=== PATIENT | female | born 1990 | race African-American/Black ===

== ENCOUNTER 2017-05-04 15:48 | Emergency (ER) | payer OTHER ==
[2017-05-04 16:03] VITALS: TEMP 97.8
--- NOTE | 2017-05-04 17:33 | ED ---
Skin/Abscess/FB HPI - General Chief complaint: Skin/Abscess/Foreign Body Stated complaint: Allergeric Reaction Time Seen by Provider: 05/04/17 16:05 Source: patient, RN notes reviewed, old records reviewed Mode of arrival: ambulatory Limitations: no limitations - History of Present Illness Initial comments: This patient is a 27 year old female with CC of herpes outbreak. She reports she has been diagnosed with herpes many years ago. She reports she had the outbreak start a few days ago. She reports htat she has been having more frequent outbreaks. She relates that it is painful to urinate. She also reports vaginal discharge and request HIV and full STD testing. She reports history of new sexual contacts. [place] the area recently, does not have PCP. - Related Data Previous Rx's Medication Instructions Recorded Acetaminophen-Codeine 300-30mg 1 tab PO Q4H PRN #12 tablet 05/04/17 [Tylenol #3] metroNIDAZOLE [Flagyl] 500 mg PO TID #21 tab 05/04/17 valACYclovir HCL [Valtrex] 1,000 mg PO Q12HR #20 tab 05/04/17 Allergies Allergy/AdvReac Type Severity Reaction Status Date / Time No Known Allergies Allergy Verified 05/04/17 16:18 Review of Systems ROS Statement: Those systems with pertinent positive or pertinent negative responses have been documented in the HPI. ROS Other: All systems not noted in ROS Statement are negative. Constitutional: Denies: fever, chills Eyes: Denies: eye pain ENT: Denies: ear pain Respiratory: Denies: cough, dyspnea, wheezes Cardiovascular: Denies: chest pain, dyspnea on exertion Endocrine: Denies: fatigue Gastrointestinal: Denies: constipation Genitourinary: Reports: dysuria, discharge. Denies: urgency, frequency, hematuria Musculoskeletal: Denies: back pain Skin: Reports: rash. Denies: lesions Neurological: Denies: weakness Psychiatric: Denies: anxiety Hematological/Lymphatic: Denies: easy bleeding Past Medical History Additional Past Medical History / Comment(s): herpes History of Any Multi-Drug Resistant Organisms: None Reported Past Surgical History: No Surgical Hx Reported Past Psychological History: No Psychological Hx Reported Smoking Status: Never smoker Past Alcohol Use History: Occasional Past Drug Use History: None Reported General Exam - General Exam Comments Initial Comments: This is a 27 year old female. No distress. Limitations: no limitations General appearance: alert, in no apparent distress Head exam: Present: atraumatic, normocephalic, normal inspection Eye exam: Present: normal appearance, PERRL, EOMI. Absent: scleral icterus, conjunctival injection, periorbital swelling ENT exam: Present: normal exam, mucous membranes moist Neck exam: Present: normal inspection. Absent: tenderness, meningismus, lymphadenopathy Respiratory exam: Present: normal lung sounds bilaterally. Absent: respiratory distress, wheezes, rales, rhonchi, stridor Cardiovascular Exam: Present: regular rate, normal rhythm, normal heart sounds. Absent: systolic murmur, diastolic murmur, rubs, gallop, clicks GI/Abdominal exam: Present: soft, normal bowel sounds. Absent: distended, tenderness, guarding, rebound, rigid External exam: Present: lesions (herpetic lesions over labia and scrotum. ). Absent: normal external exam Speculum exam: Present: vaginal discharge. Absent: normal speculum exam, cervical discharge, vaginal bleeding By manual exam: Present: normal by manual exam. Absent: cervical motion tenderness, adnexal tenderness Extremities exam: Present: normal inspection, full ROM, normal capillary refill. Absent: tenderness, pedal edema, joint swelling, calf tenderness Back exam: Present: normal inspection Course Vital Signs 05/04/17 05/04/17 05/04/17 16:00 17:57 18:50 Temperature 97.8 F 97.8 F Pulse Rate 97 75 Respiratory 17 16 16 Rate Blood Pressure 106/66 110/68 O2 Sat by Pulse 98 98 Oximetry Medical Decision Making - Medical Decision Making This is a 27 year old with history of herpes outbreak and vaginal discharge. Requests full STD testing. She does have herpetic lesion over labia, and purulent vaginal dsicharge, ordor constistent with BV. She will be treated with flagyl and valtrex, and pain medication. She has no cervival motion tenderness. Chlamydia Gonorrhea swab obtained. She request HIV testing, discussed this will be sent out and followed up with if positive. Patient agrees. Patient understands infroming sexual partners in regards to HSV and to follow up with PCP. Given referral for PCP in area. - Lab Data Lab Results 05/04/17 05/04/17 05/04/17 Range/Units 17:50 17:50 17:50 Urine Color Yellow Urine Appearance Clear (Clear) Urine pH 5.5 (5.0-8.0) Ur Specific [place] 1.022 (1.001-1.035) Urine Protein Trace H (Negative) Urine Glucose (UA) Negative (Negative) Urine Ketones Negative (Negative) Urine Blood Negative (Negative) Urine Nitrite Negative (Negative) Urine Bilirubin Negative (Negative) Urine Urobilinogen <2.0 (<2.0) mg/dL Ur Leukocyte Esterase Negative (Negative) Urine HCG, Qual Not Detected (Not Detectd) Treponema pallidum Ab (Non-Reactive) HIV-1 Antibody (Non-Reactive) HIV Ag/Ab Interpret (()) HIV p24 Antibody (Non-Reactive) HIV-2 Antibody (Non-Reactive) HIV P24 Antigen (Non-Reactive) Trichomonas Ag (Rapid) Negative (Negative) 05/04/17 05/04/17 Range/Units 17:50 17:50 Urine Color Urine Appearance (Clear) Urine pH (5.0-8.0) Ur Specific [place] (1.001-1.035) Urine Protein (Negative) Urine Glucose (UA) (Negative) Urine Ketones (Negative) Urine Blood (Negative) Urine Nitrite (Negative) Urine Bilirubin (Negative) Urine Urobilinogen (<2.0) mg/dL Ur Leukocyte Esterase (Negative) Urine HCG, Qual (Not Detectd) Treponema pallidum Ab Non-Reactive (Non-Reactive) HIV-1 Antibody Non-Reactive (Non-Reactive) HIV Ag/Ab Interpret (()) HIV p24 Antibody Non-Reactive (Non-Reactive) HIV-2 Antibody Non-Reactive (Non-Reactive) HIV P24 Antigen Non-Reactive (Non-Reactive) Trichomonas Ag (Rapid) (Negative) Disposition Clinical Impression: Herpes genitalis in women, Bacterial vaginosis Disposition: HOME SELF-CARE Condition: Good Instructions: Genital Herpes Simplex (ED) Additional Instructions: Follow-up with primary care provider. Return to emergency department if any alarming signs or symptoms occur. Prescriptions: Acetaminophen-Codeine 300-30mg [Tylenol #3] 1 tab PO Q4H PRN #12 tablet PRN Reason: Pain metroNIDAZOLE [Flagyl] 500 mg PO TID #21 tab valACYclovir HCL [Valtrex] 1,000 mg PO Q12HR #20 tab Referrals: None,Stated [Primary Care Provider] - 1-2 days Mayra aHrding MD [STAFF PHYSICIAN] - 1-2 days Time of Disposition: 18:34
[2017-05-04 17:59] VITALS: RESP 16
[2017-05-04 18:10] LABS: Appearance,Urine Clear (Clear); Bilirubin,Urine Negative (Negative); Blood,Urine Negative (Negative); Color,Urine Yellow; Glucose,Urine (UA) Negative (Negative); Ketones,Urine Negative (Negative); Leukocyte Esterase,Urine Negative (Negative); Nitrite,Urine Negative (Negative); PH, Urine 5.5 (5.0-8.0); Protein,Urine Trace (Negative); Specific Gravity,Urine 1.022 (1.001-1.035); Urobilinogen,Urine <2.0 mg/dL (<2.0)
[2017-05-04] MEDS ORDERED: valACYclovir 500 MG TAB PO STA (18:20)
[2017-05-04 18:55] VITALS: BP 110/68; PULSE 75
[2017-05-04 23:42] LABS: HIV AB P24 Non-Reactive (Non-Reactive); HIV P24 AG Non-Reactive (Non-Reactive)
[2017-05-06 13:47] LABS: Chlamydia trachomatis rRNA Not detected (Not detected); Neisseria gonorrhoeae rRNA Not detected (Not detected)
== END 2017-05-04 18:50 | disposition home or self-care (01) ==
LOC: EC 15:48
DX: A60.04 Herpesviral vulvovaginitis (principal)
CPT/HCPCS: 36415; 81003; 81025; 86780; 87070; 87086; 87205; 87390; 87491; 87591; 87808; 99284

== ENCOUNTER 2017-07-29 12:38 | Observation (INO) | payer OTHER ==
[2017-07-29 13:23] VITALS: RESP 18
[2017-07-29] MEDS ORDERED: ACETAMINOPHEN TAB 325 MG TAB PO STA (13:23)
--- NOTE | 2017-07-29 14:01 | XR ---
EXAMINATION TYPE: XR chest 2V DATE OF EXAM: 07/29/2017 COMPARISON: NONE HISTORY: Fever TECHNIQUE: Frontal and lateral views of the chest are obtained. FINDINGS: There is no focal air space opacity. Mild peribronchial cuffing may reflect bronchitis. No evidence for pneumothorax. No pleural effusion. The cardiac silhouette size is within normal limits. The osseous structures are grossly intact. IMPRESSION: 1. Correlate for bronchitis.
[2017-07-29 14:05] LABS: ALT 490 U/L (9-52); Albumin 4.6 g/dL (3.5-5.0); Alkaline Phosphatase 135 U/L (38-126); Anion Gap 10 mmol/L; Blood Urea Nitrogen 12 mg/dL (7-17); Calcium 9.9 mg/dL (8.4-10.2); Carbon Dioxide 28 mmol/L (22-30); Chloride 104 mmol/L (98-107); Glucose 93 mg/dL (74-99); Potassium 3.7 mmol/L (3.5-5.1); Sodium 142 mmol/L (137-145); Total Bilirubin 1.2 mg/dL (0.2-1.3); Total Protein 7.4 g/dL (6.3-8.2)
[2017-07-29 14:06] LABS: Basophils % (A) 0 %; Eosinophils % (A) 0 %; HCT 38.5 % (34.0-46.0); HGB 11.6 gm/dL (11.4-16.0); Hypochromasia Slight; Lymphocytes # (A) 0.2 k/uL (1.0-4.8); Lymphocytes % (A) 5 %; MCH 23.7 pg (25.0-35.0); MCHC 30.1 g/dL (31.0-37.0); MCV 78.7 fL (80.0-100.0); Mean Platelet Volume 8.2; Monocytes # (A) 0.1 k/uL (0-1.0); Monocytes % (A) 2 %; Neutrophils % (A) 92 %; Platelet Count 224 k/uL (150-450); RBC 4.89 m/uL (3.80-5.40); RDW 13.5 % (11.5-15.5); WBC 4.3 k/uL (3.8-10.6)
[2017-07-29 14:15] LABS: Appearance,Urine Cloudy (Clear); Bacteria,Urine Occasional /hpf; Bilirubin,Urine Negative (Negative); Blood,Urine Negative (Negative); Color,Urine Yellow; Glucose,Urine (UA) Negative (Negative); Ketones,Urine Negative (Negative); Leukocyte Esterase,Urine Moderate (Negative); Mucus,Urine Rare /hpf; Nitrite,Urine Negative (Negative); Protein,Urine Negative (Negative); RBC,Urine 1 /hpf (0-5); Specific Gravity,Urine 1.012 (1.001-1.035); Squamous Epithelial Cell,Urine 5 /hpf (0-4); Urobilinogen,Urine <2.0 mg/dL (<2.0); WBC,Urine 4 /hpf (0-5)
[2017-07-29 14:16] LABS: AST 889 U/L (14-36)
[2017-07-29] MEDS ORDERED: SODIUM CHLORIDE 0.9% 1,000 ML IV ONE (14:51)
--- NOTE | 2017-07-29 14:51 | ED ---
General Adult HPI - General Chief complaint: Fever Stated complaint: SOB,BACK PAIN Time Seen by Provider: 07/29/17 14:36 Source: patient, RN notes reviewed Mode of arrival: wheelchair Limitations: no limitations - History of Present Illness Initial comments: 27-year-old female presenting with chief complaint of fever, and body aches. Patient states that over the past 2 days she has developed generalized myalgias , she's also had some epigastric and right upper quadrant abdominal pain as well as 3 episodes of vomiting which occurred this morning. No diarrhea. Patient denies URI symptoms, denies cough, denies rhinorrhea or sore throat. She does complain of a frontal headache which is been present over the past 2 days as well. This was gradual in onset. Patient not currently on any medication. She denies dysuria or lower abdominal pain. - Related Data Home Medications Medication Instructions Recorded Confirmed No Known Home Medications [No 07/29/17 07/29/17 Known Home Medications] Allergies Allergy/AdvReac Type Severity Reaction Status Date / Time No Known Allergies Allergy Verified 07/29/17 14:45 Review of Systems ROS Statement: Those systems with pertinent positive or pertinent negative responses have been documented in the HPI. ROS Other: All systems not noted in ROS Statement are negative. Past Medical History Additional Past Medical History / Comment(s): herpes History of Any Multi-Drug Resistant Organisms: None Reported Past Surgical History: No Surgical Hx Reported Past Psychological History: No Psychological Hx Reported Smoking Status: Never smoker Past Alcohol Use History: None Reported Past Drug Use History: None Reported General Exam Limitations: no limitations General appearance: alert, in no apparent distress Head exam: Present: atraumatic, normocephalic Eye exam: Present: normal appearance, PERRL ENT exam: Present: mucous membranes dry Neck exam: Present: normal inspection. Absent: tenderness, meningismus Respiratory exam: Present: normal lung sounds bilaterally. Absent: respiratory distress, wheezes Cardiovascular Exam: Present: regular rate, normal rhythm GI/Abdominal exam: Present: soft, tenderness (Right upper quadrant and epigastric tenderness to palpation). Absent: distended, guarding, rebound Extremities exam: Present: normal inspection, full ROM, normal capillary refill. Absent: pedal edema, calf tenderness Back exam: Present: normal inspection, full ROM Neurological exam: Present: alert, oriented X3, CN II-XII intact. Absent: motor sensory deficit Psychiatric exam: Present: normal affect, normal mood Skin exam: Present: warm, dry, intact. Absent: cyanosis, diaphoretic Course Vital Signs 07/29/17 07/29/17 13:21 15:29 Temperature 102.3 F H 99.2 F Pulse Rate 96 71 Respiratory 18 18 Rate Blood Pressure 114/69 123/75 O2 Sat by Pulse 99 100 Oximetry Medical Decision Making - Medical Decision Making 27-year-old female presenting with fever, chills, right upper quadrant pain and vomiting. Laboratory studies reveal significant elevation in AST and ALT as well as alkaline phosphatase. Ultrasound is obtained, this shows cholelithiasis , positive Franco sign, normal gallbladder wall and normal common bile duct. Patient is given IV hydration and Rocephin emergency department. Case is discussed with Dr. Batista, general surgery, she will evaluate the patient, patient will be admitted to internal medicine with both general surgery and gastroenterology on consult. Hepatitis panel pending. - Lab Data Result diagrams: 07/29/17 13:40 07/29/17 13:40 Lab Results 07/29/17 07/29/17 07/29/17 Range/Units 13:40 13:40 13:40 WBC 4.3 (3.8-10.6) k/uL RBC 4.89 (3.80-5.40) m/uL Hgb 11.6 (11.4-16.0) gm/dL Hct 38.5 (34.0-46.0) % MCV 78.7 L (80.0-100.0) fL MCH 23.7 L (25.0-35.0) pg MCHC 30.1 L (31.0-37.0) g/dL RDW 13.5 (11.5-15.5) % Plt Count 224 (150-450) k/uL Neutrophils % 92 % Lymphocytes % 5 % Monocytes % 2 % Eosinophils % 0 % Basophils % 0 % Neutrophils # 4.0 (1.3-7.7) k/uL Lymphocytes # 0.2 L (1.0-4.8) k/uL Monocytes # 0.1 (0-1.0) k/uL Eosinophils # 0.0 (0-0.7) k/uL Basophils # 0.0 (0-0.2) k/uL Hypochromasia Slight Sodium 142 (137-145) mmol/L Potassium 3.7 (3.5-5.1) mmol/L Chloride 104 (98-107) mmol/L Carbon Dioxide 28 (22-30) mmol/L Anion Gap 10 mmol/L BUN 12 (7-17) mg/dL Creatinine 0.74 (0.52-1.04) mg/dL Est GFR (CKD-EPI)AfAm >90 (>60 ml/min/1.73 sqM) Est GFR (CKD-EPI)NonAf >90 (>60 ml/min/1.73 sqM) Glucose 93 (74-99) mg/dL Plasma Lactic Acid Alex 1.3 (0.7-2.0) mmol/L Calcium 9.9 (8.4-10.2) mg/dL Total Bilirubin 1.2 (0.2-1.3) mg/dL AST 889 H (14-36) U/L ALT 490 H (9-52) U/L Alkaline Phosphatase 135 H (38-126) U/L Total Protein 7.4 (6.3-8.2) g/dL Albumin 4.6 (3.5-5.0) g/dL Urine Color Urine Appearance (Clear) Urine pH (5.0-8.0) Ur Specific [place] (1.001-1.035) Urine Protein (Negative) Urine Glucose (UA) (Negative) Urine Ketones (Negative) Urine Blood (Negative) Urine Nitrite (Negative) Urine Bilirubin (Negative) Urine Urobilinogen (<2.0) mg/dL Ur Leukocyte Esterase (Negative) Urine RBC (0-5) /hpf Urine WBC (0-5) /hpf Ur Squamous Epith Cells (0-4) /hpf Urine Bacteria (None) /hpf Urine Mucus (None) /hpf Urine HCG, Qual (Not Detectd) Hepatitis A IgM Ab Influenza Type A RNA (Not Detectd) Influenza Type B (PCR) (Not Detectd) 07/29/17 07/29/17 07/29/17 Range/Units 13:40 13:40 15:03 WBC (3.8-10.6) k/uL RBC (3.80-5.40) m/uL Hgb (11.4-16.0) gm/dL Hct (34.0-46.0) % MCV (80.0-100.0) fL MCH (25.0-35.0) pg MCHC (31.0-37.0) g/dL RDW (11.5-15.5) % Plt Count (150-450) k/uL Neutrophils % % Lymphocytes % % Monocytes % % Eosinophils % % Basophils % % Neutrophils # (1.3-7.7) k/uL Lymphocytes # (1.0-4.8) k/uL Monocytes # (0-1.0) k/uL Eosinophils # (0-0.7) k/uL Basophils # (0-0.2) k/uL Hypochromasia Sodium (137-145) mmol/L Potassium (3.5-5.1) mmol/L Chloride (98-107) mmol/L Carbon Dioxide (22-30) mmol/L Anion Gap mmol/L BUN (7-17) mg/dL Creatinine (0.52-1.04) mg/dL Est GFR (CKD-EPI)AfAm (>60 ml/min/1.73 sqM) Est GFR (CKD-EPI)NonAf (>60 ml/min/1.73 sqM) Glucose (74-99) mg/dL Plasma Lactic Acid Alex (0.7-2.0) mmol/L Calcium (8.4-10.2) mg/dL Total Bilirubin (0.2-1.3) mg/dL AST (14-36) U/L ALT (9-52) U/L Alkaline Phosphatase (38-126) U/L Total Protein (6.3-8.2) g/dL Albumin (3.5-5.0) g/dL Urine Color Yellow Urine Appearance Cloudy H (Clear) Urine pH 5.0 (5.0-8.0) Ur Specific [place] 1.012 (1.001-1.035) Urine Protein Negative (Negative) Urine Glucose (UA) Negative (Negative) Urine Ketones Negative (Negative) Urine Blood Negative (Negative) Urine Nitrite Negative (Negative) Urine Bilirubin Negative (Negative) Urine Urobilinogen <2.0 (<2.0) mg/dL Ur Leukocyte Esterase Moderate H (Negative) Urine RBC 1 (0-5) /hpf Urine WBC 4 (0-5) /hpf Ur Squamous Epith Cells 5 H (0-4) /hpf Urine Bacteria Occasional H (None) /hpf Urine Mucus Rare H (None) /hpf Urine HCG, Qual Not Detected (Not Detectd) Hepatitis A IgM Ab NEGATIVE Influenza Type A RNA (Not Detectd) Influenza Type B (PCR) (Not Detectd) 07/29/17 Range/Units 15:30 WBC (3.8-10.6) k/uL RBC (3.80-5.40) m/uL Hgb (11.4-16.0) gm/dL Hct (34.0-46.0) % MCV (80.0-100.0) fL MCH (25.0-35.0) pg MCHC (31.0-37.0) g/dL RDW (11.5-15.5) % Plt Count (150-450) k/uL Neutrophils % % Lymphocytes % % Monocytes % % Eosinophils % % Basophils % % Neutrophils # (1.3-7.7) k/uL Lymphocytes # (1.0-4.8) k/uL Monocytes # (0-1.0) k/uL Eosinophils # (0-0.7) k/uL Basophils # (0-0.2) k/uL Hypochromasia Sodium (137-145) mmol/L Potassium (3.5-5.1) mmol/L Chloride (98-107) mmol/L Carbon Dioxide (22-30) mmol/L Anion Gap mmol/L BUN (7-17) mg/dL Creatinine (0.52-1.04) mg/dL Est GFR (CKD-EPI)AfAm (>60 ml/min/1.73 sqM) Est GFR (CKD-EPI)NonAf (>60 ml/min/1.73 sqM) Glucose (74-99) mg/dL Plasma Lactic Acid Alex (0.7-2.0) mmol/L Calcium (8.4-10.2) mg/dL Total Bilirubin (0.2-1.3) mg/dL AST (14-36) U/L ALT (9-52) U/L Alkaline Phosphatase (38-126) U/L Total Protein (6.3-8.2) g/dL Albumin (3.5-5.0) g/dL Urine Color Urine Appearance (Clear) Urine pH (5.0-8.0) Ur Specific [place] (1.001-1.035) Urine Protein (Negative) Urine Glucose (UA) (Negative) Urine Ketones (Negative) Urine Blood (Negative) Urine Nitrite (Negative) Urine Bilirubin (Negative) Urine Urobilinogen (<2.0) mg/dL Ur Leukocyte Esterase (Negative) Urine RBC (0-5) /hpf Urine WBC (0-5) /hpf Ur Squamous Epith Cells (0-4) /hpf Urine Bacteria (None) /hpf Urine Mucus (None) /hpf Urine HCG, Qual (Not Detectd) Hepatitis A IgM Ab Influenza Type A RNA Not Detected (Not Detectd) Influenza Type B (PCR) Not Detected (Not Detectd) Disposition Clinical Impression: Cholelithiasis, Transaminitis Disposition: ADMITTED IP TO THIS [facility] Condition: Stable Referrals: None,Stated [Primary Care Provider] - 1-2 days Decision to Admit Reason: Admit from EC Decision Date: 07/29/17 Decision Time: 16:29
--- NOTE | 2017-07-29 15:46 | US ---
EXAMINATION TYPE: US gallbladder DATE OF EXAM: 07/29/2017 COMPARISON: NONE CLINICAL HISTORY: Pain. Abdomen and back pain x 1 day, fever, chills, nausea EXAM MEASUREMENTS: Liver Length: 15.0 cm Gallbladder Wall: 0.2 cm CBD: 0.6 cm Right Kidney: 10.5 x 4.1 x 5.4 cm Pancreas: visualized portions wnl, tail limited by overlying midline bowel gas Liver: wnl Gallbladder: multiple echogenic shadowing foci seen with largest measuring 1.2cm, wall measures wnl Evidence for sonographic Franco's sign: yes CBD: measures in upper limits of normal at 0.6cm Right Kidney: wnl IMPRESSION: 1. Cholelithiasis.
[2017-07-29] MEDS ORDERED: cefTRIAXone IN SWFI 1,000 MG/10 ML SYRINGE IVP STA (15:47)
[2017-07-29 15:50] LABS: Hepatitis A AB IgM Index 0.02; Hepatitis A Antibody IgM NEGATIVE
[2017-07-29] MEDS ORDERED: NALOXONE 0.4 MG/ML 1 ML VIAL IV PRN (16:23)
[2017-07-29 17:44] VITALS: BP 118/71; PULSE 63; TEMP 98.7
[2017-07-30 01:11] LABS: Hepatitis B Core IgM Non-Reactive (Non-Reactive)
--- NOTE | 2017-08-26 15:08 | P.PN ---
Progress Note - Text Progress Note Date: 08/29/16 Patient left AMA before being seen
== END 2017-07-29 17:47 | disposition left against medical advice (07) ==
LOC: EC 12:38 → 5MS5E 16:23
PROVIDERS: ADMIT Family Medicine; ATTEND Family Medicine
DX: K80.20 Calculus of gallbladder without cholecystitis without obstruction (principal); R74.0 Nonspecific elevation of levels of transaminase and lactic acid dehydrogenase [LDH]; R51 Headache
CPT/HCPCS: 99285 ×2; 96374 ×2; 96361 ×2; 36415; 80053; 80074; 83605; 85025; 81001; 81025; 87040; 87502; 71046; 76705; G0378; J0696

== ENCOUNTER 2018-12-25 03:14 | Emergency (ER) | payer OTHER ==
[2018-12-25 03:26] VITALS: BP 113/77; PULSE 74; RESP 20; TEMP 98
[2018-12-25] MEDS ORDERED: AZITHROMYCIN 500 MG TAB PO STA (04:05)
--- NOTE | 2018-12-25 04:07 | ED ---
Female Urogenital HPI - General Chief complaint: Urogenital Stated complaint: Not feeling well Time Seen by Provider: 12/25/18 03:52 Source: patient Mode of arrival: ambulatory Limitations: no limitations - History of Present Illness Initial comments: Shawanda is a 28-year-old female presents the emergency department today for evaluation of vaginal discharge. Patient reports that she's noticed a malodorous vaginal discharge for 2-3 days duration. Patient reports that initially she thought she may have a yeast infection however it became malodorous which is atypical for her so she came to the ER for evaluation. Patient does state that she has been sexually active and is concern for exposure to sexual transmitted infections. Patient would like treatment for sexual transmitted infections. - Related Data Previous Rx's Medication Instructions Recorded Fluconazole [Diflucan] 150 mg PO Q3D #2 tab 12/25/18 Allergies Allergy/AdvReac Type Severity Reaction Status Date / Time No Known Allergies Allergy Verified 07/29/17 14:45 Review of Systems ROS Statement: Those systems with pertinent positive or pertinent negative responses have been documented in the HPI. ROS Other: All systems not noted in ROS Statement are negative. Past Medical History Additional Past Medical History / Comment(s): herpes History of Any Multi-Drug Resistant Organisms: None Reported Past Surgical History: No Surgical Hx Reported Past Psychological History: No Psychological Hx Reported Smoking Status: Never smoker Past Alcohol Use History: None Reported Past Drug Use History: None Reported General Exam - General Exam Comments Initial Comments: Physical Exam GENERAL: Patient is well-developed and well-nourished. Patient is nontoxic and well-hydr ated and is in no distress. HENT: Normocephalic, Atraumatic. EYES: PERRL, EOMI PULMONARY: Unlabored respiration CARDIOVASCULAR: RRR ABDOMEN: Nontender SKIN: Skin is clear with no lesions or rashes and otherwise unremarkable. : Normal external genitalia Copious white discharge, moderate discharge from cervix no cervical motion tenderness or strawberry cervix noted NEUROLOGIC: Patient is alert and oriented x3. Moving all extremities spontaneously MUSCULOSKELETAL: Normal extremities with adequate strength and full range of motion. No lower extremity swelling or edema. No calf tenderness. PSYCHIATRIC: Normal psychiatric evaluation. Limitations: no limitations Course Vital Signs 12/25/18 03:22 Temperature 98.0 F Pulse Rate 74 Respiratory 20 Rate Blood Pressure 113/77 O2 Sat by Pulse 100 Oximetry Medical Decision Making - Medical Decision Making The patient was seen and evaluated history is obtained from the patient This is a pleasant 28-year-old female with concern for exposure sexually transmitted infections physical exam is concerning for some discharge from the cervix as well as signs of yeast infection Patient will be treated for gonorrhea and chlamydia with Rocephin and azithromycin patient will be prescribed Diflucan, given that both Diflucan and a azithromycin and prolonged QT I did not recommend both be taken at the same time therefore dose of Diflucan was not given in the emergency department is where the gonorrhea and chlamydia testing will not result immediately she will be notified of any positive results. Trichomonas was negative. - Lab Data Lab Results 12/25/18 12/25/18 12/25/18 Range/Units 03:31 03:31 04:00 Urine Color Yellow Urine Appearance Clear (Clear) Urine pH 5.5 (5.0-8.0) Ur Specific [place] 1.031 (1.001-1.035) Urine Protein Negative (Negative) Urine Glucose (UA) Negative (Negative) Urine Ketones Negative (Negative) Urine Blood Negative (Negative) Urine Nitrite Negative (Negative) Urine Bilirubin Negative (Negative) Urine Urobilinogen 2.0 (<2.0) mg/dL Ur Leukocyte Esterase Small H (Negative) Urine RBC 2 (0-5) /hpf Urine WBC <1 (0-5) /hpf Ur Squamous Epith Cells 4 (0-4) /hpf Urine Bacteria Many H (None) /hpf Urine Mucus Occasional H (None) /hpf Urine HCG, Qual Not Detected (Not Detectd) Trichomonas Ag (Rapid) Negative (Negative) Disposition Clinical Impression: Vaginal discharge Disposition: HOME SELF-CARE Condition: Stable Instructions (If sedation given, give patient instructions): Safe Sex (ED) Prescriptions: Fluconazole [Diflucan] 150 mg PO Q3D #2 tab Is patient prescribed a controlled substance at d/c from ED?: No Referrals: None,Stated [Primary Care Provider] - 1-2 days
[2018-12-25] MEDS ORDERED: cefTRIAXone 1 GM VIAL IM ONE (04:15)
[2018-12-25 04:19] LABS: Appearance,Urine Clear (Clear); Bacteria,Urine Many /hpf; Bilirubin,Urine Negative (Negative); Blood,Urine Negative (Negative); Color,Urine Yellow; Glucose,Urine (UA) Negative (Negative); Ketones,Urine Negative (Negative); Leukocyte Esterase,Urine Small (Negative); Mucus,Urine Occasional /hpf; Nitrite,Urine Negative (Negative); PH, Urine 5.5 (5.0-8.0); Protein,Urine Negative (Negative); RBC,Urine 2 /hpf (0-5); Specific Gravity,Urine 1.031 (1.001-1.035); Squamous Epithelial Cell,Urine 4 /hpf (0-4); WBC,Urine <1 /hpf (0-5)
[2018-12-26 14:34] LABS: C. trachomatis,PCR Negative (Neg,Equiv); Chlamydia trachomatis Source Vagina
[2018-12-26 14:38] LABS: N. gonorrhoeae,PCR Negative (Neg,Equiv); Neisseria Source Vagina
== END 2018-12-25 04:40 | disposition home or self-care (01) ==
LOC: EC 03:14
DX: N89.8 Other specified noninflammatory disorders of vagina (principal)
CPT/HCPCS: 81001; 81025; 87808; 87491; 87591; 87070; 87205; 99283; 96372; J0696

== ENCOUNTER 2019-05-14 00:43 | Emergency (ER) | payer OTHER ==
[2019-05-14] MEDS ORDERED: SODIUM CHLORIDE 0.9% 1,000 ML IV STA (01:54)
[2019-05-14] MEDS ORDERED: diphenhydrAMINE 50 MG/ML 1 ML VIAL IVP STA (01:54)
[2019-05-14] MEDS ORDERED: ACETAMINOPHEN TAB 325 MG TAB PO STA (01:54)
[2019-05-14] MEDS ORDERED: METOCLOPRAMIDE 5 MG/ML 2 ML VIAL IVP STA (01:54)
--- NOTE | 2019-05-14 02:08 | CT ---
EXAMINATION TYPE: CT brain wo con DATE OF EXAM: 05/14/2019 COMPARISON: None HISTORY: headache CT DLP: 1099.40 mGycm Automated exposure control for dose reduction was used. Multiple axial sections were obtained of the brain without contrast. Ventricles and sulci appear normal. There is no mass effect nor midline shift. There is no sign of in tracranial hemorrhage. Calvarium is intact. There is large empty sella which is normal variant. IMPRESSION: Negative CT scan of the brain.
[2019-05-14 03:05] VITALS: BP 118/82; PULSE 63; RESP 17; TEMP 97.5
--- NOTE | 2019-05-14 03:35 | ED ---
General Adult HPI - General Chief complaint: Headache Stated complaint: Headache,Visual Changes Time Seen by Provider: 05/14/19 01:15 Source: patient, RN notes reviewed, old records reviewed Mode of arrival: ambulatory Limitations: no limitations - History of Present Illness Initial comments: 29-year-old female patient past history of migraine headaches and sees a chief complaint approximately 5 days waxing and waning migraine headache. Patient reports that is behind her left eye. Reports that she has had some photophobia. Does report that her vision is at baseline. Reports that headache began in the morning, had a somewhat acute onset, however was not thunderclap. Denies other red flag symptoms. Denies a loss of consciousness. Feels similar to migraine headache of the past. Denies any chance of being Systemic: Pt denies fatigue, fever/chills, rash. Pt denies weakness, night sweats, weight loss. Neuro: Pt denies visual disturbances, syncope or pre-syncope. HEENT: Pt denies ocular discharge or irritation, otalgia, rhinorrhea, pharyngitis or notable lymphadenopathy. Cardiopulmonary: Pt denies chest pain, SOB, heart palpitations, dyspnea on exertion. Abdominal/GI: Pt denies abdominal pain, n/v/d. : Pt denies dysuria, burning w/ urination, frequency/urgency. Denies new onset urinary or bowel incontinence. MSK: Pt denies myalgia, loss of strength or function in extremities. Neuro: Pt denies new onset weakness, paresthesias. - Related Data Previous Rx's Medication Instructions Recorded Fluconazole [Diflucan] 150 mg PO Q3D #2 tab 12/25/18 Allergies Allergy/AdvReac Type Severity Reaction Status Date / Time No Known Allergies Allergy Verified 07/29/17 14:45 Review of Systems ROS Statement: Those systems with pertinent positive or pertinent negative responses have been documented in the HPI. ROS Other: All systems not noted in ROS Statement are negative. Past Medical History Past Medical History: No Reported History Additional Past Medical History / Comment(s): herpes History of Any Multi-Drug Resistant Organisms: None Reported Past Surgical History: No Surgical Hx Reported Past Psychological History: No Psychological Hx Reported Smoking Status: Never smoker Past Alcohol Use History: Occasional Past Drug Use History: None Reported General Exam - General Exam Comments Initial Comments: Constitutional: NAD, AOX3, Pt has pleasant affect. HEENT: NC/AT, trachea midline, neck supple, no lymphadenopathy. Posterior pharynx non erythematous, without exudates. External ears appear normal, without discharge. Mucous membranes moist. Eyes PERRLA, EOM intact. There is no scleral icterus. No pallor noted. Cardiopulmonary: RRR, no murmurs, rubs or gallops, no JVD noted. Lungs CTAB in anterior and posterior guadarrama. No peripheral edema. Abdominal exam: Abdomen soft and non-distended. Abdomen non-tender to palpation in all 4 quadrants. Bowel sounds active in LLQ. No hepatosplenomegaly. No ecchymosis Neuro: CN II-XII intact. No nuchal rigidity. No raccon eyes, no chávez sign, no hemotympanum. No cervical spinal tenderness. Repeat neurologic exam within normal limits. MSK: No posterior calf tenderness bilaterally, homans sign negative bilaterally. Posterior tibialis and radial pulse +2 bilaterally. Sensation intact in upper and lower extremities. Full active ROM in upper and lower extremities, 5/5 stregnth. Limitations: no limitations Course Vital Signs 05/14/19 05/14/19 00:48 03:02 Temperature 98.3 F 97.5 F L Pulse Rate 66 63 Respiratory 15 17 Rate Blood Pressure 124/82 118/82 O2 Sat by Pulse 100 100 Oximetry Medical Decision Making - Medical Decision Making 29-year-old female patient presents to ED 48 but waxing and waning migraine-like headache. Patient vital signs are stable, afebrile. Physical exam displayed intact neurologic exam. Patient reports that she has never had any previous imaging of the brain. Requests CT. CT is negative. Patient had resolved with headache cocktail. Patient asymptomatic at this time. Repeat neurologic exam was within normal limits. Patient requesting discharge. Patient to follow up with primary care provider will return to ER physician worsens. Case discussed with Dr. Salguero. - Lab Data Lab Results 05/14/19 Range/Units 01:30 Urine HCG, Qual Not Detected (Not Detectd) Disposition Clinical Impression: Migraine headache Disposition: HOME SELF-CARE Condition: Stable Instructions (If sedation given, give patient instructions): Acute Headache (ED) Additional Instructions: Follow-up with primary care provider tomorrow. Return to ER if condition worsens. Is patient prescribed a controlled substance at d/c from ED?: No Referrals: None,Stated [Primary Care Provider] - 1-2 days [facility] [NON-STAFF] - 1-2 days
== END 2019-05-14 03:44 | disposition home or self-care (01) ==
LOC: EC 00:43
DX: G43.909 Migraine, unspecified, not intractable, without status migrainosus (principal)
CPT/HCPCS: 81025; 70450; 99284; 96374; 96375; 96361; J1200; J2765

== ENCOUNTER 2019-06-13 22:18 | Emergency (ER) | payer OTHER ==
[2019-06-13 22:23] VITALS: BP 107/75; PULSE 91; RESP 18; TEMP 97.9
[2019-06-13] MEDS ORDERED: AMOXIC-POT CLAV 875MG STARTER PACK 2 TAB BTL PO STA (22:39)
[2019-06-13] MEDS ORDERED: ACET/COD 300 MG/30 MG STARTER PACK 6 TAB BTL PO STA (22:39)
--- NOTE | 2019-06-13 22:41 | ED ---
ENT HPI - General Chief complaint: Dental/Oral Stated complaint: tooth pain Time Seen by Provider: 06/13/19 22:26 Source: patient Mode of arrival: ambulatory Limitations: no limitations - History of Present Illness Initial comments: Patient states that her right back molar is coming in and causing pain, patient unsure if this was normal and presented to the ER. Patient denies facial swelling, feverss, swelling below tongue or of neck. Denies difficulty swallowing or breathing, denies cracked dentition or masses of the gum. Patient has no other complaints and appears well on arrival, no distress. Afebrile. - Related Data Previous Rx's Medication Instructions Recorded Fluconazole [Diflucan] 150 mg PO Q3D #2 tab 12/25/18 Amoxicillin/Potassium Clav 1 tab PO Q12HR 7 Days #14 tab 06/14/19 [Augmentin 875-125 Tablet] Allergies Allergy/AdvReac Type Severity Reaction Status Date / Time No Known Allergies Allergy Verified 06/13/19 22:22 Review of Systems ROS Statement: Those systems with pertinent positive or pertinent negative responses have been documented in the HPI. ROS Other: All systems not noted in ROS Statement are negative. Past Medical History Past Medical History: No Reported History Additional Past Medical History / Comment(s): herpes History of Any Multi-Drug Resistant Organisms: None Reported Past Surgical History: No Surgical Hx Reported Past Psychological History: No Psychological Hx Reported Smoking Status: Never smoker Past Alcohol Use History: Occasional Past Drug Use History: None Reported General Exam - General Exam Comments Initial Comments: General: The patient is awake and alert, in no distress, and does not appear acutely ill. Eye: Pupils are equal, round and reactive to light, extra-ocular movements are intact. No nystagmus. There is normal conjunctiva bilaterally. No signs of icterus. Ears, nose, mouth and throat: There are moist mucous membranes and no oral lesions. No cracked dentition there is partially erupted tooth #32, no signs of adjacent toilet or redness. Slight pain to percussion. No swelling below the tongue or below the angle of the mandible no facial swelling noted Neck: The neck is supple, there is no tenderness or JVD. Cardiovascular: There is a regular rate and rhythm. No murmur, rub or gallop is appreciated. Respiratory: Lungs are clear to auscultation, respirations are non-labored, breath sounds are equal. No wheezes, stridor, rales, or rhonchi. Musculoskeletal: Normal ROM, no tenderness. Strength 5/5. Sensation intact. Pulses equal bilaterally 2+. Neurological: A&O x 3. CN II-XII intact grossly, There are no obvious motor or sensory deficits. Coordination appears grossly intact. Speech is normal. Skin: Skin is warm and dry and no rashes or lesions are noted. Psychiatric: Cooperative, appropriate mood & affect, normal judgment. Limitations: no limitations Course Vital Signs 06/13/19 06/13/19 22:22 22:57 Temperature 97.9 F 97.9 F Pulse Rate 91 91 Respiratory 18 18 Rate Blood Pressure 107/75 107/75 O2 Sat by Pulse 99 99 Oximetry Medical Decision Making - Medical Decision Making 29yo female presenting for dental pain. No abscess identified. Suspect pain is from partially erupted molar. Cannot however 100% r/o apical infection. Will treat with Augmentin and have patient f/u with oral surgery for consultation. Return parameters discussed. Patient denied . Patient discharged appearing well. Disposition Clinical Impression: Pain, dental Disposition: HOME SELF-CARE Condition: Good Instructions (If sedation given, give patient instructions): Dental Abscess (ED), Toothache (ED) Additional Instructions: Please use medication as discussed. Please follow-up with dentist and and or oral surgery for consultation of wisdom teeth removal. Please return to emergency room if the symptoms increase or worsen or for any other concerns. Is patient prescribed a controlled substance at d/c from ED?: No Referrals: None,Stated [Primary Care Provider] - 1-2 days John Kee DDS [STAFF PHYSICIAN] - 1-2 days Mor Montalvo DDS [STAFF PHYSICIAN] - 1-2 days Time of Disposition: 22:39
== END 2019-06-13 22:58 | disposition home or self-care (01) ==
LOC: EC 22:18
DX: K08.89 Other specified disorders of teeth and supporting structures (principal)
CPT/HCPCS: 99282

== ENCOUNTER 2019-08-08 00:09 | Emergency (ER) | payer OTHER ==
[2019-08-08 00:19] VITALS: TEMP 98.5
--- NOTE | 2019-08-08 00:43 | ED ---
General Adult HPI - General Chief complaint: Shortness of Breath Stated complaint: SOB Time Seen by Provider: 08/08/19 00:21 Source: patient Mode of arrival: ambulatory Limitations: no limitations - History of Present Illness Initial comments: Patient is 29-year-old female presenting to the emergency department with a chief complaint of shortness of breath. States symptoms and ongoing for the past 2 weeks. States she has developed some shortness of breath but no cough. States the shortness of breath is exacerbated whenever she is laying flat and alleviated in a standing position. States today she is also developed a nonproductive cough. States she took some Mucinex today and after several coughing fits she noticed some blood. Denies unilateral leg swelling. States she is not currently taking oral contraceptives. Denies any recent hospitalizations or prolonged periods of inactivity. Denies any night sweats fever or chills. Denies nausea vomiting diarrhea. Denies chest pain back pain or abdominal pain. Denies history of DVT or PE. - Related Data Previous Rx's Medication Instructions Recorded Fluconazole [Diflucan] 150 mg PO Q3D #2 tab 12/25/18 Amoxicillin/Potassium Clav 1 tab PO Q12HR 7 Days #14 tab 06/14/19 [Augmentin 875-125 Tablet] Albuterol Inhaler (Bulk) [Ventolin 1 - 2 puff INHALATION RT-Q6H PRN 08/08/19 Hfa Inhaler (Bulk)] #1 inhaler Allergies Allergy/AdvReac Type Severity Reaction Status Date / Time No Known Allergies Allergy Verified 08/08/19 00:19 Review of Systems ROS Statement: Those systems with pertinent positive or pertinent negative responses have been documented in the HPI. ROS Other: All systems not noted in ROS Statement are negative. Past Medical History Past Medical History: No Reported History Additional Past Medical History / Comment(s): herpes, gall stones History of Any Multi-Drug Resistant Organisms: None Reported Past Surgical History: No Surgical Hx Reported Past Psychological History: No Psychological Hx Reported Smoking Status: Never smoker Past Alcohol Use History: Occasional Past Drug Use History: None Reported General Exam Limitations: no limitations General appearance: alert, in no apparent distress Head exam: Present: atraumatic, normocephalic, normal inspection Eye exam: Present: normal appearance, PERRL, EOMI Pupils: Present: normal accommodation ENT exam: Present: normal exam, normal oropharynx, mucous membranes moist, TM's normal bilaterally, normal external ear exam Neck exam: Present: normal inspection, full ROM. Absent: lymphadenopathy Respiratory exam: Present: normal lung sounds bilaterally. Absent: chest wall tenderness Cardiovascular Exam: Present: regular rate, normal rhythm, normal heart sounds Extremities exam: Present: normal inspection, full ROM Back exam: Present: normal inspection, full ROM Neurological exam: Present: alert, oriented X3 Psychiatric exam: Present: normal affect, normal mood Skin exam: Present: warm, dry, intact, normal color Course Vital Signs 08/08/19 08/08/19 00:15 01:48 Temperature 98.5 F Pulse Rate 79 63 Respiratory 16 18 Rate Blood Pressure 109/75 122/84 O2 Sat by Pulse 99 99 Oximetry Medical Decision Making - Medical Decision Making Patient is a 29-year-old female presenting to the emergency department with chief complaint shortness of breath. Symptoms ongoing for the past 2 weeks. Increasing severity. On physical examination patient is not in any respiratory distress. Lungs are clear bilaterally. Vitals are stable. Chest x-ray is unr emarkable. Patient is perc positive due to hemoptysis. D-dimer is negative. No chest pain, fevers, back pain or abdominal pain. Patient will be discharged with an albuterol inhaler. Return parameters were thoroughly discussed with patient was understanding and agreeable. Case discussed with physician. - Lab Data Lab Results 08/08/19 Range/Units 00:55 D-Dimer 0.18 (<0.60) mg/L FEU Disposition Clinical Impression: Cough, Shortness of breath Disposition: HOME SELF-CARE Condition: Stable Instructions (If sedation given, give patient instructions): Asthma (ED) Additional Instructions: Follow-up with primary care. Return to emergency department if symptoms worsen. Prescriptions: Albuterol Inhaler (Bulk) [Ventolin Hfa Inhaler (Bulk)] 1 - 2 puff INHALATION RT-Q6H PRN #1 inhaler PRN Reason: Shortness Of Breath Is patient prescribed a controlled substance at d/c from ED?: No Referrals: None,Stated [Primary Care Provider] - 1-2 days Time of Disposition: 01:34
--- NOTE | 2019-08-08 00:54 | XR ---
EXAMINATION TYPE: XR chest 2V DATE OF EXAM: 08/08/2019 COMPARISON: 07/29/2017 HISTORY: Short of breath TECHNIQUE: FINDINGS: Heart and mediastinum are normal. Lungs are clear. Diaphragm is normal. Bony thorax appears normal. IMPRESSION: Normal chest. No change.
[2019-08-08 01:49] VITALS: BP 122/84; PULSE 63; RESP 18
== END 2019-08-08 01:45 | disposition home or self-care (01) ==
LOC: EC 00:09
DX: R06.02 Shortness of breath (principal); R05 Cough
CPT/HCPCS: 36415; 71046; 85379; 99284

== ENCOUNTER 2019-08-10 05:09 | Emergency (ER) | payer OTHER ==
[2019-08-10] MEDS ORDERED: LORazepam 2 MG/ML INJ IV STA (05:43)
[2019-08-10 06:27] LABS: Basophils % (A) 1 %; Eosinophils # (A) 0.1 k/uL (0-0.7); Eosinophils % (A) 2 %; HCT 38.1 % (34.0-46.0); HGB 11.7 gm/dL (11.4-16.0); Lymphocytes # (A) 1.9 k/uL (1.0-4.8); Lymphocytes % (A) 38 %; MCH 24.4 pg (25.0-35.0); MCHC 30.8 g/dL (31.0-37.0); MCV 79.3 fL (80.0-100.0); Monocytes # (A) 0.2 k/uL (0-1.0); Monocytes % (A) 4 %; Neutrophils # (A) 2.6 k/uL (1.3-7.7); Neutrophils % (A) 53 %; Platelet Count 264 k/uL (150-450); RDW 13.4 % (11.5-15.5); WBC 4.9 k/uL (3.8-10.6)
--- NOTE | 2019-08-10 06:32 | ED ---
SOB HPI - General Chief Complaint: Shortness of Breath Stated Complaint: SOB Time Seen by Provider: 08/10/19 05:26 Source: patient Mode of arrival: ambulatory - History of Present Illness Initial Comments: This patient is a 29-year-old woman who presents to be evaluated for shortness of breath. She states the symptoms have been going on for between 1 and 2 weeks. She states that she is not able to take a full breath in. She states that it feels like when she attempts to do this something catches in her chest. Patient denies any chest pain. No fever or chills. No cough. She has not had any change in urination or bowel movements. No leg pain or swelling. MD Complaint: shortness of breath Onset/Timin -: week(s) Severity scale (1-10): 0 Consistency: constant Improves With: upright position Worsens With: lying flat Treatments Prior to Arrival: none - Related Data Previous Rx's Medication Instructions Recorded Fluconazole [Diflucan] 150 mg PO Q3D #2 tab 12/25/18 Amoxicillin/Potassium Clav 1 tab PO Q12HR 7 Days #14 tab 06/14/19 [Augmentin 875-125 Tablet] Albuterol Inhaler (Bulk) [Ventolin 1 - 2 puff INHALATION RT-Q6H PRN 08/08/19 Hfa Inhaler (Bulk)] #1 inhaler Melatonin 2.5 mg PO HS PRN #20 tab.chew 08/10/19 Allergies Allergy/AdvReac Type Severity Reaction Status Date / Time No Known Allergies Allergy Verified 08/10/19 05:18 Review of Systems ROS Statement: Those systems with pertinent positive or pertinent negative responses have been documented in the HPI. ROS Other: All systems not noted in ROS Statement are negative. Constitutional: Denies: fever, chills, weakness Respiratory: Reports: dyspnea. Denies: cough, wheezes, hemoptysis Cardiovascular: Reports: orthopnea. Denies: chest pain, palpitations, dyspnea on exertion, edema, syncope Gastrointestinal: Denies: abdominal pain, melena, hematochezia Genitourinary: Denies: dysuria, hematuria Musculoskeletal: Denies: back pain Skin: Denies: rash Neurological: Denies: headache, weakness, numbness Past Medical History Past Medical History: No Reported History, Asthma Additional Past Medical History / Comment(s): herpes, gall stones History of Any Multi-Drug Resistant Organisms: None Reported Past Surgical History: No Surgical Hx Reported Past Psychological History: No Psychological Hx Reported Smoking Status: Never smoker Past Alcohol Use History: Occasional Past Drug Use History: None Reported General Exam General appearance: alert, in no apparent distress, anxious Head exam: Present: atraumatic, normocephalic Eye exam: Present: normal appearance ENT exam: Present: normal oropharynx Respiratory exam: Present: normal lung sounds bilaterally. Absent: respiratory distress, wheezes, rales, rhonchi, stridor, accessory muscle use, decreased breath sounds Cardiovascular Exam: Present: regular rate, normal rhythm, normal heart sounds. Absent: systolic murmur, diastolic murmur, rubs, gallop GI/Abdominal exam: Present: soft. Absent: distended, tenderness, guarding, rebound, rigid, mass Extremities exam: Present: normal inspection, normal capillary refill. Absent: pedal edema, calf tenderness Back exam: Present: normal inspection. Absent: CVA tenderness (R), CVA tenderness (L) Neurological exam: Present: alert Skin exam: Present: warm, dry, intact, normal color. Absent: rash Course Vital Signs 08/10/19 08/10/19 05:13 06:34 Temperature 98.8 F 98.3 F Pulse Rate 73 72 Respiratory 20 20 Rate Blood Pressure 130/81 135/46 O2 Sat by Pulse 98 100 Oximetry Medical Decision Making - Medical Decision Making Further history reveals that the patient states she is usually fine throughout the day and then has feeling shortness of breath mainly at night when she is trying to sleep. She does admit to having a lot of stress in dealing with what is going on currently in relation to the covert epidemic. In light of this will try a course of melatonin for sleep and have patient follow-up to see if this improves things. - Lab Data Result diagrams: 08/10/19 06:18 08/10/19 06:18 Lab Results 08/10/19 08/10/19 08/10/19 Range/Units 06:18 06:18 06:18 WBC 4.9 (3.8-10.6) k/uL RBC 4.80 (3.80-5.40) m/uL Hgb 11.7 (11.4-16.0) gm/dL Hct 38.1 (34.0-46.0) % MCV 79.3 L (80.0-100.0) fL MCH 24.4 L (25.0-35.0) pg MCHC 30.8 L (31.0-37.0) g/dL RDW 13.4 (11.5-15.5) % Plt Count 264 (150-450) k/uL Neutrophils % 53 % Lymphocytes % 38 % Monocytes % 4 % Eosinophils % 2 % Basophils % 1 % Neutrophils # 2.6 (1.3-7.7) k/uL Lymphocytes # 1.9 (1.0-4.8) k/uL Monocytes # 0.2 (0-1.0) k/uL Eosinophils # 0.1 (0-0.7) k/uL Basophils # 0.0 (0-0.2) k/uL PT 11.0 (9.0-12.0) sec INR 1.1 (<1.2) APTT 28.1 (22.0-30.0) sec D-Dimer <0.17 (<0.60) mg/L FEU Sodium 137 (137-145) mmol/L Potassium 3.6 (3.5-5.1) mmol/L Chloride 102 (98-107) mmol/L Carbon Dioxide 27 (22-30) mmol/L Anion Gap 8 mmol/L BUN 9 (7-17) mg/dL Creatinine 0.73 (0.52-1.04) mg/dL Est GFR (CKD-EPI)AfAm >90 (>60 ml/min/1.73 sqM) Est GFR (CKD-EPI)NonAf >90 (>60 ml/min/1.73 sqM) Glucose 99 (74-99) mg/dL Calcium 10.2 (8.4-10.2) mg/dL Total Bilirubin 0.6 (0.2-1.3) mg/dL AST 24 (14-36) U/L ALT 22 (4-34) U/L Alkaline Phosphatase 66 (38-126) U/L Troponin I (0.000-0.034) ng/mL NT-Pro-B Natriuret Pep pg/mL Total Protein 7.6 (6.3-8.2) g/dL Albumin 4.7 (3.5-5.0) g/dL 08/10/19 08/10/19 Range/Units 06:18 06:18 WBC (3.8-10.6) k/uL RBC (3.80-5.40) m/uL Hgb (11.4-16.0) gm/dL Hct (34.0-46.0) % MCV (80.0-100.0) fL MCH (25.0-35.0) pg MCHC (31.0-37.0) g/dL RDW (11.5-15.5) % Plt Count (150-450) k/uL Neutrophils % % Lymphocytes % % Monocytes % % Eosinophils % % Basophils % % Neutrophils # (1.3-7.7) k/uL Lymphocytes # (1.0-4.8) k/uL Monocytes # (0-1.0) k/uL Eosinophils # (0-0.7) k/uL Basophils # (0-0.2) k/uL PT (9.0-12.0) sec INR (<1.2) APTT (22.0-30.0) sec D-Dimer (<0.60) mg/L FEU Sodium (137-145) mmol/L Potassium (3.5-5.1) mmol/L Chloride (98-107) mmol/L Carbon Dioxide (22-30) mmol/L Anion Gap mmol/L BUN (7-17) mg/dL Creatinine (0.52-1.04) mg/dL Est GFR (CKD-EPI)AfAm (>60 ml/min/1.73 sqM) Est GFR (CKD-EPI)NonAf (>60 ml/min/1.73 sqM) Glucose (74-99) mg/dL Calcium (8.4-10.2) mg/dL Total Bilirubin (0.2-1.3) mg/dL AST (14-36) U/L ALT (4-34) U/L Alkaline Phosphatase (38-126) U/L Troponin I <0.012 (0.000-0.034) ng/mL NT-Pro-B Natriuret Pep 37 pg/mL Total Protein (6.3-8.2) g/dL Albumin (3.5-5.0) g/dL - EKG Data -: EKG Interpreted by Hi EKG shows normal: sinus rhythm, axis (Normal), intervals (Normal), QRS complexes (Normal), ST-T waves (Normal) Rate: normal (Rate 66 bpm) Interpretation: normal EKG Disposition Clinical Impression: Anxiety Disposition: HOME SELF-CARE Condition: Good Instructions (If sedation given, give patient instructions): Dyspnea (ED) Prescriptions: Melatonin 2.5 mg PO HS PRN #20 tab.chew PRN Reason: Insomnia Is patient prescribed a controlled substance at d/c from ED?: No Referrals: None,Stated [Primary Care Provider] - 1-2 days
[2019-08-10 06:35] VITALS: TEMP 98.3
[2019-08-10 06:38] LABS: ALT 22 U/L (4-34); AST 24 U/L (14-36); African American GFR (CKD) >90 (>60 ml/min/1.73 sqM); Albumin 4.7 g/dL (3.5-5.0); Alkaline Phosphatase 66 U/L (38-126); Anion Gap 8 mmol/L; Blood Urea Nitrogen 9 mg/dL (7-17); Calcium 10.2 mg/dL (8.4-10.2); Carbon Dioxide 27 mmol/L (22-30); Chloride 102 mmol/L (98-107); Glucose 99 mg/dL (74-99); Non-African American GFR(CKD) >90 (>60 ml/min/1.73 sqM); Potassium 3.6 mmol/L (3.5-5.1); Sodium 137 mmol/L (137-145); Total Bilirubin 0.6 mg/dL (0.2-1.3); Total Protein 7.6 g/dL (6.3-8.2)
[2019-08-10 06:40] LABS: D-Dimer <0.17 mg/L FEU (<0.60); INR 1.1 (<1.2); Partial Thromboplastin Time 28.1 sec (22.0-30.0)
--- NOTE | 2019-08-10 06:58 | XR ---
EXAMINATION TYPE: XR chest 2V DATE OF EXAM: 08/10/2019 COMPARISON: 08/08/2019 HISTORY: Difficulty breathing. Short of breath TECHNIQUE: FINDINGS: Heart and mediastinum are normal. Lungs are clear. Diaphragm is normal. Bony thorax appears normal. There are chest leads. IMPRESSION: Normal chest. No change.
[2019-08-10 07:22] VITALS: BP 103/80; PULSE 75; RESP 18
== END 2019-08-10 07:17 | disposition home or self-care (01) ==
LOC: EC 05:09
DX: F41.9 Anxiety disorder, unspecified (principal)
CPT/HCPCS: 36415; 93005; 85379; 83880; 80053; 84484; 85025; 85610; 85730; 71046; 99285; 96374; J2060

== ENCOUNTER 2020-03-04 09:04 | Emergency (ER) | payer OTHER ==
[2020-03-04 09:09] VITALS: BP 121/80; PULSE 79; RESP 18; TEMP 99.2
--- NOTE | 2020-03-04 09:29 | ED ---
Lower Extremity Injury HPI - General Chief Complaint: Extremity Injury, Lower Stated Complaint: Fluid on knee Time Seen by Provider: 03/04/20 09:11 Source: patient, RN notes reviewed Mode of arrival: ambulatory Limitations: no limitations - History of Present Illness Initial Comments: This a 29-year-old female presents emergency Department chief complaint left knee pain. She's been having increasing symptoms last 2 weeks. She primarily feels the pain when she stands on her leg or she fully straightens her leg. She also most running when she first wakes up. Patient denies any major trauma no fever or chills no discoloration and swelling. She states it just feels tight. Patient's had no prior surgeries. - Related Data Previous Rx's Medication Instructions Recorded Fluconazole [Diflucan] 150 mg PO Q3D #2 tab 12/25/18 Amoxicillin/Potassium Clav 1 tab PO Q12HR 7 Days #14 tab 06/14/19 [Augmentin 875-125 Tablet] Albuterol Inhaler (Mhu) [Ventolin 1 - 2 puff INHALATION RT-Q6H PRN 08/08/19 Hfa Inhaler (Mhu)] #1 inhaler Melatonin 2.5 mg PO HS PRN #20 tab.chew 08/10/19 Ibuprofen [Motrin] 600 mg PO Q8HR PRN #30 tab 03/04/20 Allergies Allergy/AdvReac Type Severity Reaction Status Date / Time No Known Allergies Allergy Verified 03/04/20 09:09 Review of Systems ROS Statement: Those systems with pertinent positive or pertinent negative responses have been documented in the HPI. ROS Other: All systems not noted in ROS Statement are negative. Past Medical History Past Medical History: No Reported History, Asthma Additional Past Medical History / Comment(s): herpes, gall stones History of Any Multi-Drug Resistant Organisms: None Reported Past Surgical History: No Surgical Hx Reported Past Psychological History: No Psychological Hx Reported Past Alcohol Use History: Occasional Past Drug Use History: None Reported General Exam Limitations: no limitations General appearance: alert, in no apparent distress Head exam: Present: atraumatic, normocephalic, normal inspection Respiratory exam: Present: normal lung sounds bilaterally. Absent: respiratory distress, wheezes, rales, rhonchi, stridor Cardiovascular Exam: Present: regular rate, normal rhythm, normal heart sounds. Absent: systolic murmur, diastolic murmur, rubs, gallop, clicks Extremities exam: Present: other (Left knee full range of motion, neurovascular intact, and swelling or erythema no increase in warmth. Patient has pain with full extension, no laxity noted negative anterior posterior drawer) Neurological exam: Present: reflexes normal. Absent: motor sensory deficit Course Vital Signs 03/04/20 09:04 Temperature 99.2 F Pulse Rate 79 Respiratory 18 Rate Blood Pressure 121/80 O2 Sat by Pulse 100 Oximetry Medical Decision Making - Medical Decision Making 29-year-old female presented from for knee pain x-ray does not show any major abnormality's. Patient will follow-up with orthopedics also MRI if symptoms persist. Patient has not taken any Motrin or Tylenol she was started on anti- inflammatories followed up with on-call orthopedics Disposition Clinical Impression: Left knee pain Disposition: HOME SELF-CARE Condition: Stable Instructions (If sedation given, give patient instructions): Knee Pain (ED) Additional Instructions: Please return to the Emergency Department if symptoms worsen or any other concerns. Prescriptions: Ibuprofen [Motrin] 600 mg PO Q8HR PRN #30 tab PRN Reason: Pain Is patient prescribed a controlled substance at d/c from ED?: No Referrals: None,Stated [REFERRING] - 1-2 days Diego Franco MD [STAFF PHYSICIAN] - 1-2 days Time of Disposition: 10:23
--- NOTE | 2020-03-04 10:34 | XR ---
EXAMINATION TYPE: XR knee complete LT DATE OF EXAM: 03/04/2020 COMPARISON: None HISTORY: Pain TECHNIQUE: Three-view left knee FINDINGS: Small joint effusion may be present. No acute fractures or dislocations are evident. Joint spaces as visualized appear normal. Follow-up exams can be performed 7-10 days from acute trauma for continued pain. IMPRESSION: 1. There may be a small joint effusion present. 2. No acute osseous abnormality.
== END 2020-03-04 10:31 | disposition home or self-care (01) ==
LOC: EC 09:04
DX: M25.562 Pain in left knee (principal)
CPT/HCPCS: 99283

== ENCOUNTER 2020-05-29 17:12 | Emergency (ER) | payer OTHER ==
[2020-05-29 17:17] VITALS: BP 110/68; PULSE 95; RESP 18; TEMP 98.8
--- NOTE | 2020-05-29 17:22 | ED ---
Extremity Problem HPI - General Chief complaint: Extremity Problem,Nontraumatic Stated complaint: L Leg Issue Time Seen by Provider: 05/29/20 17:19 Source: patient Mode of arrival: ambulatory Limitations: no limitations - History of Present Illness Initial comments: 30-year-old female presenting to the emergency department with chief complaint of right knee pain. Patient reports the pain has been out when for the past 1-2 months. Patient reports a sensation like there is "fluid" in the knee. Patient reports the pain is exacerbated with ambulation alleviated at rest. Denies any injury to her leg. No numbness or tingling. Denies any calf tenderness. Denies taking medication to alleviate the symptoms. Denies any chest pain shortness of breath. No history DVT PE. - Related Data Home Medications Medication Instructions Recorded Confirmed Cider Vinegar [Apple Cider Vinegar] 300 mg PO DAILY 05/29/20 05/29/20 Allergies Allergy/AdvReac Type Severity Reaction Status Date / Time No Known Allergies Allergy Verified 05/29/20 18:15 Review of Systems ROS Statement: Those systems with pertinent positive or pertinent negative responses have been documented in the HPI. ROS Other: All systems not noted in ROS Statement are negative. Past Medical History Past Medical History: Asthma Additional Past Medical History / Comment(s): herpes, gall stones History of Any Multi-Drug Resistant Organisms: None Reported Past Surgical History: No Surgical Hx Reported Past Psychological History: No Psychological Hx Reported Smoking Status: Never smoker Past Alcohol Use History: Occasional Past Drug Use History: None Reported General Exam Limitations: no limitations General appearance: alert, in no apparent distress, obese Head exam: Present: atraumatic, normocephalic, normal inspection Eye exam: Present: normal appearance, PERRL, EOMI Pupils: Present: normal accommodation ENT exam: Present: normal exam, normal oropharynx, mucous membranes moist Neck exam: Present: normal inspection, full ROM. Absent: tenderness Respiratory exam: Present: normal lung sounds bilaterally. Absent: respiratory distress, wheezes, rales, rhonchi, stridor Cardiovascular Exam: Present: regular rate, normal rhythm, normal heart sounds Extremities exam: Present: normal inspection, full ROM, tenderness (Anterior knee tenderness. Negative anterior drawer test. Positive Yahir test.), normal capillary refill, other (Palpable DP and PT bilaterally). Absent: pedal edema, joint swelling, calf tenderness Back exam: Present: normal inspection, full ROM. Absent: tenderness, CVA tenderness (R), CVA tenderness (L) Neurological exam: Present: alert, oriented X3 Psychiatric exam: Present: normal affect, normal mood Skin exam: Present: warm, dry, intact, normal color Course Vital Signs 05/29/20 17:15 Temperature 98.8 F Pulse Rate 95 Respiratory 18 Rate Blood Pressure 110/68 O2 Sat by Pulse 100 Oximetry Medical Decision Making - Medical Decision Making 30-year-old female presenting to the emergency department with chief complaint of right knee pain. On physical examination, patient has a positive Yahir sign with some tenderness over the right knee. Full range of motion. She is otherwise neurovascularly intact. No calf tenderness. X-ray shows knee fusion. Advised the patient to keep the foot elevated and follow-up with event marketing specialist. Return parameters were thoroughly discussed the patient is sitting agreeable. Case discussed with physician. Disposition Clinical Impression: Left knee pain, Knee effusion, left Disposition: HOME SELF-CARE Condition: Stable Instructions (If sedation given, give patient instructions): Swollen Knee Joint (ED) Additional Instructions: Follow-up with event marketing specialist. Please return to the Emergency Department if symptoms worsen or any other concerns. Is patient prescribed a controlled substance at d/c from ED?: No Referrals: Nonstaff,Physician [Primary Care Provider] - 1-2 days Diego Franco MD [STAFF PHYSICIAN] - 1-2 days Time of Disposition: 18:24
--- NOTE | 2020-05-29 18:00 | XR ---
EXAMINATION TYPE: XR knee complete RT DATE OF EXAM: 05/29/2020 COMPARISON: NONE HISTORY: Knee pain TECHNIQUE: 3 views FINDINGS: I see no fracture nor dislocation. Joint spaces are normal. There is small knee joint effus ion. IMPRESSION: Small joint effusion. No fracture seen.
== END 2020-05-29 18:30 | disposition home or self-care (01) ==
LOC: EC 17:12
DX: M25.462 Effusion, left knee (principal); M25.561 Pain in right knee
CPT/HCPCS: 99283